=== PATIENT | male | born 1960 | race Caucasian/White ===

== ENCOUNTER → 2016-12-13 | Outpatient (CLI) | payer OTHER ==
--- NOTE | 2016-12-14 08:57 | KCIC ---
Examination: MRI of the right shoulder without contrast. HISTORY History of right shoulder pain, decreased range of motion, weakness COMPARISON None available. Technique: Multiplanar, multisequence MR imaging of the right shoulder without contrast. Findings : The long of the biceps tendon is within the bicipital groove. The attachment of the long head of biceps tendon to the superior labral anchor grossly appears intact There is mild increased signal identified in the subscapularis tendon, supraspinatus, infraspinatus tendon likely due to mild tendinosis. No evidence of full-thickness tear of the rotator cuff identified. The acromion is type 2 with lateral downsloping. The muscle bulk grossly appears unremarkable. There is increased signal identified in the superior labrum extending anteriorly and posteriorly likely a SLAP tear with a multiloculated cystic structure extending from the posterior superior labrum and extending into the spinoglenoid notch likely a paralabral cyst measuring 2.8 centimeters. There is increased T2 signal identified in infraspinatus muscle likely entrapment neuropathic edema and denervation edema in infraspinatus muscle. Mild degenerative changes identified in the glenohumeral joint, acromioclavicular joint. The teres minor tendon grossly appears intact. There is some mild obliteration of fat in the rotator interval. IMPRESSION - Increase signal identified in the superior labrum extending anterior and posterior likely a SLAP tear with a 2.7 centimeters paralabral cyst extending from the posterior superior labrum into the spinoglenoid notch causing entrapment of the suprascapular nerve with resultant denervation edema in infraspinatus muscle. - Tendinosis of the rotator cuff. - Mild acromioclavicular joint, glenohumeral joint degenerative changes. - There is some obliteration of fat in the rotator interval. Correlate for adhesive capsulitis. Electronically signed by: Kenton Santiago (Dec 14, 2016 08:55:19)
== END | disposition home or self-care (01) ==
LOC: KCIC MRI 16:15
PROVIDERS: ATTEND Orthopaedic Surgery
DX: M25.511 Pain in right shoulder (principal)
CPT/HCPCS: 73221

== ENCOUNTER → 2019-08-17 | Outpatient (CLI) | payer OTHER ==
--- NOTE | 2019-08-17 10:17 | KCIC ---
Examination: MRI of the left knee without contrast HISTORY: History of left medial knee pain, injury COMPARISON: None available TECHNIQUE: Multiplanar, multisequence MR imaging of the left knee was performed without contrast. FINDINGS: The anterior cruciate ligament, posterior cruciate ligament appear intact. There is horizontal signal identified in the body of the medial meniscus with signal extending to the superior and inferior articular surface of the posterior horn of the medial meniscus likely complex tear. The lateral meniscus appears intact. The extensor mechanism is intact. The medial retinaculum, lateral retinaculum appear intact. The medial collateral ligament, lateral collateral ligamentous complex appearing the fibular collateral ligament complexes femoris tendon, popliteus tendon appear intact. Small knee joint effusion with small popliteal cyst identified. There is deep fissuring of cartilage identified in the medial compartment. There is mild superficial fraying of cartilage identified in the lateral, patellofemoral compartments. Mild edema identified anterior to the infrapatellar tendon. IMPRESSION: 1. Complex tear posterior horn medial meniscus at the junction with the body of the medial meniscus. 2. Small knee joint effusion with small popliteal cyst. 2. Mild tricompartmental degenerative changes. Grade I chondromalacia medial compartment. Electronically signed by: Kenton Santiago MD (08/17/2019 10:14 AM) [id number]
== END | disposition home or self-care (01) ==
LOC: KCIC MRI 07:56
PROVIDERS: ATTEND Family Medicine
DX: S83.242A Other tear of medial meniscus, current injury, left knee, initial encounter (principal); M17.12 Unilateral primary osteoarthritis, left knee; M94.262 Chondromalacia, left knee; M25.462 Effusion, left knee; M71.22 Synovial cyst of popliteal space [Baker], left knee; X58.XXXA Exposure to other specified factors, initial encounter; Y93.89 Activity, other specified; Y92.89 Other specified places as the place of occurrence of the external cause; Y99.8 Other external cause status
CPT/HCPCS: 73721

== ENCOUNTER → 2019-10-26 | Outpatient (CLI) | payer OTHER ==
[~2019-10-26] MED LIST: CETI10TA24 PO; HYDR-3165 PO; IBUP-1060 PO; LOSA-73 PO; MULT-245 PO; OMEG1CAP50 PO; UBID200C32 PO
[2019-10-26 14:19] LABS: BASO # 0.1 x10^3/uL (0.0-0.2); BASO % 1 % (0-3); EOS # 0.2 x10^3/uL (0.0-0.7); EOS % 3 % (0-3); LYMPH % 27 % (24-48); MEAN CORPUSCULAR HEMOGLOBIN 31 pg (25-35); MEAN CORPUSCULAR HGB CONC 35 g/dL (31-37); MEAN CORPUSCULAR VOLUME 88 fL (79-100); MONO # 0.8 x10^3/uL (0.0-1.1); MONO % 11 % (0-9); NEUT # 4.3 x10^3/uL (1.8-7.7); NEUT % 58 % (31-73); PLATELET COUNT 346 x10^3/uL (140-400); RED BLOOD COUNT 5.21 x10^6/uL (4.30-5.70); RED CELL DISTRIBUTION WIDTH 13.1 % (11.5-14.5); WHITE BLOOD COUNT 7.4 x10^3/uL (4.0-11.0)
[2019-10-26 14:28] LABS: CALCIUM 9.1 mg/dL (8.5-10.1); CREATININE 0.9 mg/dL (0.7-1.3); GFR 86.1; POTASSIUM 4.1 mmol/L (3.5-5.1)
== END | disposition home or self-care (01) ==
LOC: SURGPAT 13:25
PROVIDERS: ATTEND Orthopaedic Surgery
DX: Z01.818 Encounter for other preprocedural examination (principal); S83.232A Complex tear of medial meniscus, current injury, left knee, initial encounter; X58.XXXA Exposure to other specified factors, initial encounter; Y93.89 Activity, other specified; Y92.89 Other specified places as the place of occurrence of the external cause; Y99.8 Other external cause status
CPT/HCPCS: 36415; 80048; 85025

== ENCOUNTER → 2019-10-30 | Day surgery (SDC) | payer OTHER ==
[~2019-10-30] VITALS: Ht 177.8 cm; Wt 101.6 kg
[~2019-10-30] MED LIST changes: +BUPIVACAINE MPF 0.5% 30 ML VIAL. ONE; +BUPIVACAINE-EPI 0.5%-1:200000 MPF 30 ML VIAL. ONE; +DEXAMETHASONE SOD PHOS 4 MG/ML VIAL ONE; +HYDROcodone/APAP 7.5/325MG 1 TAB TABLET PO ONE; +HYDROmorphone 2 MG/ML VIAL IV PRN; +IV RINGERS,LACTATED 1000ML 1,000 ML IV SCH; +LIDOCAINE 2% PF 5 ML VIAL. ONE; +MORPHINE SULFATE 2 MG/ML VIAL. IV PRN; +ONDANSETRON PF 4 MG/2 ML VIAL. IV PRN; +ONDANSETRON PF 4 MG/2 ML VIAL. ONE; +PROCHLORPERAZINE 10 MG/2 ML VIAL. IV PRN; +PROPOFOL 20 ML IV ONE; +SEVOFLURANE 31 TO 60 MINUTES. IH ONE; +fentaNYL PF VIAL 100 MCG/2 ML VIAL IV PRN; +fentaNYL PF VIAL 100 MCG/2 ML VIAL ONE
--- NOTE | 2019-10-30 08:43 | DISCH ---
DISCHARGE INSTRUCTIONS Condition on Discharge Condition on Discharge: Stable Activity After Discharge Activity Instructions for Disc: Progressive ambulation (May advance activities as symptomatically tolerated) Weight Bearing Status after Di: As tolerated Diet after Discharge Diet after Discharge: Regular Wound Incision Care Wound/Incision Care: Ice to area for comfort, Keep wound elevated (when not up and around), Change dressing (remove dressing in 2 days may then shower no soaking until sutures removed) Contacting the [facility] after DC Call your doctor for: Concerns you may have (report any calf tenderness or excessive leg swelling as we discussed) Follow-Up Follow up with: Dr. Fairbanks 1 week LEONEL FAIRBANKS MD Oct 30, 2019 08:43
--- NOTE | 2019-10-30 09:41 | PDOC4 ---
Operative Note Operative Note Date of surgery: 10/30/2019 Preoperative diagnosis: Medial meniscus tear left knee Postoperative diagnosis same plus radial tear body of lateral meniscus and grade 3 chondromalacia medial femoral condyle Operative procedure: Left knee arthroscopy partial medial and lateral meniscectomy chondroplasty medial femoral condyle Surgeon: Tiki Assist: Maury Quigley nurse practitioner Anesthesia: Gen. Estimated blood loss: 2 mL Complications: None Operative indications: Please see my preoperative orthopedic note for detailed operative indications and note that we reviewed date of surgery the plan to address the tear in the meniscus, my inability to really decrease symptoms from degenerative change but if he does have loose pieces of cartilage that are likely to break off and irritate the knee we will gently trim those are address any other pathology as appropriate. We also talked about the possibility of infection blood clots nerve or blood vessel damage medical or other anesthetic complications among others and specifically what to look out for in terms of calf tenderness and leg swelling and to report those if present all his questions were answered he wishes to proceed with surgical evaluation and treatment Operative text: Patient was identified procedure verified patient placed in the supine position on the operative table. After adequate amounts of general anesthesia were administered the left lower extremity was prepped and draped in standard sterile fashion with a thigh tourniquet placed. After timeout was performed patient procedure identified and verified the left lower extremity was exsanguinated by Esmarch bandage tourniquet inflated to 300 mmHg a standard lateral portal was established a medial portal established using spinal needle localization and the knee joint was systematically examined. He was noted to have some grade 3 chondromalacia of the medial femoral condyle which was trimmed back to stable tissue gently using arthroscopic shaver and a displaceable tear posterior horn of the medial meniscus was noted which was trimmed back to stable tissue using the arthroscopic punch and shaver patellofemoral tracking was noted to be satisfactory there were no loose bodies noted in the gutters or suprapatellar pouch. He did have a displaceable tear of the body of the lateral meniscus involving approximately 25% of the inner portion of the meniscal rim this was trimmed back to stable tissue and radiused appropriately to avoid any additional stress risers or unstable tissue. ACL was probed and found to be intact. The knee was examined in the gutter suprapatellar pouch and notch area for any evidence of residual loose body. The joint was drained of arthroscopic fluid portals and fat pad were infused with half percent Marcaine with epinephrine portals closed with nylon suture sterile dressings were applied toes were noted be warm pink following deflation of the tourniquet patient was returned to recovery room in stable condition having tolerated procedure well. Maury Quigley nurse practitioner was present for the procedure and assisted in patient positioning prepping draping and skin closure. LEONEL RODRÍGUEZ MD Oct 30, 2019 09:41
[2019-10-30 10:40] VITALS: BP 140/84
== END | disposition home or self-care (01) ==
LOC: SURG 07:15
PROVIDERS: ATTEND Orthopaedic Surgery
DX: S83.242A Other tear of medial meniscus, current injury, left knee, initial encounter (principal); I10 Essential (primary) hypertension; X58.XXXA Exposure to other specified factors, initial encounter; Y93.89 Activity, other specified; Y92.89 Other specified places as the place of occurrence of the external cause; Y99.8 Other external cause status; Z79.899 Other long term (current) drug therapy; Z98.890 Other specified postprocedural states
CPT/HCPCS: 29880; A7015; C1782; J0696; J1100; J2001; J2405; J2704; J3010; J3490